=== PATIENT | male | born 2005 | race Caucasian/White ===

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

== ENCOUNTER 2023-07-19 18:30 | Outpatient (CLI) | payer MEDICAID, SELFPAY ==
[2023-07-19 23:12] LABS: Chlamydia DNA Amplified* NOT DETECTED (No Detected); GC DNA Amplified* NOT DETECTED (No Detected)
== END 2023-07-19 18:31 | disposition home or self-care (01) ==
LOC: LKVREF 18:31
PROVIDERS: PCP Physician Assistant Medical; Visit Provider Physician Assistant
DX: Z11.3 Encounter for screening for infections with a predominantly sexual mode of transmission (principal)
CPT/HCPCS: 87491; 87591

== ENCOUNTER 2023-09-24 16:58 | Emergency (ER) | payer OTHER, SELFPAY ==
[2023-09-24] VITALS (21 sets, daily range): BP systolic 117–149; BP diastolic 62–132; PULSE 94–125; RESP 16–40; TEMP 36.8–39.4; O2SAT 94–100; BMI 23.0
--- NOTE | 2023-09-24 17:26 | ED.GENADULT ---
HPI - General Adult General Date Seen: 09/24/23 Chief complaint: Shortness of Breath/Dyspnea Stated complaint: Shortness of breath, wheezing, body aches Time Seen by Provider: 09/24/23 17:26 History of Present Illness HPI narrative: 17-year-old male with past medical history of three previous episodes of mono, GERD, tonsillectomy and adenoidectomy, presenting to the ER today for fever, shortness of breath, tachypnea, and tingling affecting his body and torso. He was seen in the urgent care earlier today. In review of the records he had a temp of 99.6?, pulse ox 100%, respiratory rate 24, pulse of 99. Weight was erroneously charted as 730 kg. He presented for body aches, chills, headache, sore throat, nausea and vomiting, also dry cough and shortness of breath. Rapid strep test, COVID, influenza, RSV tests were negative. Patient says that he woke up on Saturday morning feeling ill. He was shaky and probably running a fever. After that he developed other symptoms including generalized myalgias and whole body achiness. He has also had headache. He has had a very mild but nonproductive cough. He has been nauseous and threw up 1 time (nonbloody, nonbilious) yesterday. He had 1 normal bowel movement and no diarrhea. Urination has been normal, but yellow colored. He has been very thirsty and trying to drink lots of water and Gatorade. He attributes his thirst to his fever. No definite known sick exposures but his girlfriend, who works with him, noted that there were a couple of other coworkers went home with high fevers today. No other history of immunosuppression, diabetes, seizures.. Related Data Home Medications Medication Instructions Recorded Confirmed No Known Home Medications 09/24/23 09/24/23 Allergies Allergy/AdvReac Type Severity Reaction Status Date / Time No Known Allergies Allergy Unknown Verified 09/24/23 14:54 [facility] Surgical History History of tonsillectomy and adenoidectomy (10/22/12) ?Z90.89 - Acquired absence of other organs (ICD-10) Family History Father Hypothyroidism Uncle Hypothyroidism Social History Smoking Status: Never smoker How often do you have a drink containing alcohol: never AUDIT-C Alcohol total score: 0 Non-prescribed substance use: denies use Little interest or pleasure in doing things: not at all Feeling down, depressed, or hopeless: not at all Exam Narrative: Exam Narrative: Constitutional: Tachypneic but oxygen 100%. Breathing fast but respirations are unlabored. No stridor. Feels warm to the touch. Appears well-developed and well-nourished. Alert. Conversant. Non toxic. HENT: Head: Atraumatic. No depressed skull fracture, Raccoon Eyes, Harrison's sign, or hemotympanum. Face normal. TMs normal Nose: Nose normal. Mouth/Throat: Oral mucosa is clear and moist. no trismus. Pharynx erythematous on both. Tonsillar pillars. Tonsils are surgically absent. Uvula midline. Phonation normal. No trismus. No signs of intraoral infection. No facial swelling. Eyes: Conjunctivae normal. EOM normal. Pupils equal, round, and reactive to light. No scleral icterus. Neck: Normal range of motion. Neck supple. No tracheal deviation present. No JVD Cardiovascular: Tachycardic, regular rhythm. No gallop. No friction rub. No murmur heard. Symmetric radial artery pulses Pulmonary/Chest: Effort normal. No stridor. No respiratory distress. No wheezes. No rales. No rhonchi . No tenderness. Abdominal: Soft. Bowel sounds normal. No distension. No mass. No HSM No tenderness. No rebound. No guarding. No CVA tenderness Musculoskeletal: RUE: Normal range of motion. No tenderness. No deformity LUE: Normal range of motion. No tenderness. No deformity RLE: Normal range of motion. No edema. No tenderness. No deformity LLE: Normal range of motion. No edema. No tenderness. No deformity Lymph: Bilateral posterior cervical adenopathy. Neurological: Alert and oriented to person, place, and time. Normal strength. CN II-VII intact. No sensory deficit. GCS eye subscore is 4. GCS verbal subscore is 5. GCS motor subscore is 6. Normal coordination Skin: There is an erythematous nonraised, non sandpapery confluent macular rash affecting his chest. This is a large confluent area of redness where the skin is just slightly red. It is not really consistent with urticaria, scarlet fever. There is no of petechiae or purpura. No vesicles, pustules, or abscesses. Back, abdomen, extremities, neck, and face are normal.. No pallor. Normal capillary refill. Psychiatric: Normal mood. Normal affect. Polite. He has a girlfriend. They work together at [employer]. 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 Const: Vital Signs, click to edit/add: Vital Signs - 24 hr 09/24/23 17:04 09/24/23 17:40 09/24/23 17:51 Temperature 103 F H 103.0 F H Pulse Rate 106 H Pulse Rate [Pulse Oximeter] 119 H Respiratory Rate 40 H Blood Pressure Blood Pressure [Ri ght Upper Arm] 118/68 Pulse Oximetry 100 99 Oxygen Delivery Me thod Room Air 09/24/23 18:00 09/24/23 18:22 09/24/23 18:30 Temperature Pulse Rate 106 H 106 H 111 H Pulse Rate [Pulse Oximeter] Respiratory Rate Blood Pressure Blood Pressure [Ri ght Upper Arm] Pulse Oximetry 98 97 95 Oxygen Delivery Me thod 09/24/23 18:32 09/24/23 18:45 09/24/23 19:00 Temperature Pulse Rate 111 H 114 H 121 H Pulse Rate [Pulse Oximeter] Respiratory Rate Blood Pressure 149/132 H Blood Pressure [Ri ght Upper Arm] Pulse Oximetry 96 99 100 Oxygen Delivery Me thod 09/24/23 19:02 09/24/23 19:04 09/24/23 19:15 Temperature 102.0 F H Pulse Rate 125 H 101 H Pulse Rate [Pulse Oximeter] Respiratory Rate 36 H Blood Pressure 128/97 H Blood Pressure [Ri ght Upper Arm] Pulse Oximetry 100 94 Oxygen Delivery Me thod 09/24/23 19:30 09/24/23 19:39 09/24/23 19:45 Temperature Pulse Rate 108 H 112 H 109 H Pulse Rate [Pulse Oximeter] Respiratory Rate Blood Pressure 117/70 Blood Pressure [Ri ght Upper Arm] Pulse Oximetry 96 98 98 Oxygen Delivery Me thod 09/24/23 19:45 09/24/23 20:00 09/24/23 20:03 Temperature Pulse Rate 104 H 105 H Pulse Rate [Pulse Oximeter] Respiratory Rate Blood Pressure 119/62 Blood Pressure [Ri ght Upper Arm] Pulse Oximetry 99 98 97 Oxygen Delivery Me thod 09/24/23 20:15 09/24/23 20:32 09/24/23 21:02 Temperature 98.3 F Pulse Rate 103 H 102 H 94 Pulse Rate [Pulse Oximeter] Respiratory Rate 20 16 Blood Pressure 118/66 124/68 Blood Pressure [Ri ght Upper Arm] Pulse Oximetry 97 97 97 Oxygen Delivery Me thod 09/24/23 21:08 Temperature 98.3 F Pulse Rate Pulse Rate [Pulse Oximeter] 95 Respiratory Rate 16 Blood Pressure Blood Pressure [Ri ght Upper Arm] 124/68 Pulse Oximetry 97 Oxygen Delivery Me thod Room Air Course Vital Signs Vital signs: Initial Vital Signs Temperature 103 F H 09/24/23 17:04 Temperature Source Oral 09/24/23 17:04 Pulse Rate 119 H 09/24/23 17:04 Respiratory Rate 40 H 09/24/23 17:04 Blood Pressure 118/68 09/24/23 17:04 Blood Pressure Mean 84 09/24/23 17:04 Blood Pressure Position Sitting 09/24/23 17:04 Pulse Oximetry 100 09/24/23 17:04 Oxygen Delivery Method Room Air 09/24/23 17:04 Vital Signs Temperature 103 F H 09/24/23 17:04 Pulse Rate 119 H 09/24/23 17:04 Respiratory Rate 40 H 09/24/23 17:04 Blood Pressure 118/68 09/24/23 17:04 Pulse Oximetry 100 09/24/23 17:04 Oxygen Delivery Method Room Air 09/24/23 17:04 Temperature 98.3 F 09/24/23 21:08 Pulse Rate 95 09/24/23 21:08 Respiratory Rate 16 09/24/23 21:08 Blood Pressure 124/68 09/24/23 21:08 Pulse Oximetry 97 09/24/23 21:08 Oxygen Delivery Method Room Air 09/24/23 21:08 Medications Administered Medications: Discontinued Medications Generic Name Dose Route Start Last Admin Trade Name Freq PRN Reason Stop Dose Admin Sodium Chloride 1,000 mls @ 1,000 mls/hr 09/24/23 17:30 09/24/23 18:42 0.9 % Sodium Chloride 1000 Ml IV 09/24/23 18:29 Infused .Q1H YOANNA Infusion Sodium Chloride 1,000 mls @ 1,000 mls/hr 09/24/23 19:00 09/24/23 20:24 0.9 % Sodium Chloride 1000 Ml IV 09/24/23 19:59 Infused .Q1H YOANNA Infusion Ibuprofen 600 mg 09/24/23 17:45 09/24/23 17:40 Ibuprofen 200 Mg Tablet PO 09/24/23 17:46 600 mg ONCE ONE Administration Lorazepam 1 mg 09/24/23 18:55 09/24/23 19:12 Lorazepam 2 Mg/Ml Inj IVP 09/24/23 18:56 1 mg ONCE ONE Administration Medical Decision Making MDM Narrative Medical decision making narrative: Child presents for evaluation of fever associated with diffuse body aches, myalgias, headache, also significant tachycardia and marked tachypnea with a respiratory rate in the 40s. Despite his rapid respiratory rate, oxygen was actually 100%. Differential for the fever is broad. No classic rash to suggest a classic viral syndrome. No evidence for OM on exam. He does have mild pharyngitis but strep and mono test are negative.. Differential for fever included cellulitis, septic arthritis, osteomyelitis but these are not seen on exam. Lungs are clear and oxygen is normal. He has minimal cough. Because of his tachypnea we did obtain chest x-ray and is clear, by my read. Unfortunately [facility] is down in the are not able to read our films until tomorrow. Formal radiology report pending. Abdominal exam is benign, appendicitis/colitis/ intra-abdominal source for fever is unlikely. UA is normal,, COVID, influenza, RSV PCR negative. [place] and strep negative. Given present T lucia with tachycardia, tachypnea, fever, we did send blood cultures. However the rest of his lab workup looks remarkably good in reassuring. White count normal. Lactic normal. Other labs reassuring. Initially was unclear why he was so tachypneic. Differential would include respiratory problem, anxiety, compensation for metabolic acidosis. We did obtain blood glass was actually shows a respiratory alkalosis. No evidence for new onset DKA. No evidence for a lactic acidosis. He denies any aspirin ingestion. We treated with Ativan and he had marked improvement with that. This would lead me to believe it was probably anxiety/panic triggering the tachypnea. He did have very prominent body aches and headache. No stiff neck. I had a long discussion with the patient and with his father. We discussed our broad differential for his fever including viral syndromes, pharyngitis, mono, bacteremia, as well as more concerning infection such as meningitis. Overall my clinical impression is that this is not meningitis since he is generally well-appearing and does not have any stiff neck. Bacterial meningitis very unlikely, but cannot be definitively ruled out without a LP. I also discussed that there is potential for rapid deterioration with bacterial meningitis, if present. Discussed risk of LP including back pain, post spinal headache, bleeding, [employer] infection. My recommendation was to hold off on LP for now given his clinical improvement after fluids and Ativan and antipyretics. However the patient is father were very concerned and they really wanted to proceed with the LP. Head CT was obtained that is negative for any mass lesion or intracranial abscess. LP was obtained. Opening pressure was normal. Fluid was clear. Cell counts from the CSF are reassuring. No evidence for meningitis at this time. At this point the patient is non-toxic, well appearing. This fever is likely due to viral illness. Plan of care includes supportive care with antipyretics, fluids, and watchful waiting at home. Instructions to return for recheck in 2-3 days if not improved, or immediately if worsening fever, decreasing oral intake, confusion, trouble breathing, lethargy, irritability, seizure, or any other concerns. Prescription for Ativan provided to use if needed for recurrent panic attacks. He understands benzodiazepine precautions. Lab Data Labs: Lab Results 09/24/23 09/24/23 09/24/23 Range/Units 17:20 17:27 17:35 WBC 9.78 (4.50-11.00) K/uL RBC 5.39 (4.30-5.90) m/uL Hgb 16.9 (13.5-17.5) gm/dL Hct 46.9 (37.0-53.0) % MCV 87 (80-100) fL MCH 31 (26-34) pg MCHC 36 (32-36) gm/dL RDW Coeff of Milka 11.7 (11.5-15.5) % Plt Count 156 (140-440) K/uL Neut % (Auto) 67.3 (42.0-72.0) % Lymph % (Auto) 20.6 (20-44) % [place] % (Auto) 11.7 H (0.0-11.0) % Eos % (Auto) 0.1 (0.0-7.0) % Baso % (Auto) 0.2 (0.0-3.0) % Neut # (Auto) 6.59 (1.7-7.0) K/uL Lymph # (Auto) 2.01 (0.90-2.90) K/uL [place] # (Auto) 1.10 H (0.00-0.90) K/UL Eos # (Auto) 0.01 (0.00-0.50) K/uL Baso # (Auto) 0.02 (0.00-0.30) K/uL Abs Immat Gran (auto) 0.01 (0.00-0.30) K/uL Imm/Tot Granulo (auto) 0.1 % VBG pH 7.501 H (7.32-7.43) VBG pCO2 36 L (40-50) mmHG VBG pO2 31.9 (25-47) mmHG VBG HCO3 28 (21-28) mmol/L Sodium 134 L (135-149) mmol/L Potassium 3.6 (3.6-5.1) mmol/L Chloride 98 (96-114) mmol/L Carbon Dioxide 25 (20-32) mmol/L Anion Gap 11 (7-15) mEq/L BUN 14 (5-24) mg/dL Creatinine 0.7 (0.6-1.2) mg/dL Estimated Creat Clear 174.24 Estimated GFR 136 ml/min Glucose 108 (60-115) mg/dL Lactate 1.8 (0.5-1.9) mmol/L Calcium 8.9 (8.7-10.8) mg/dL Total Bilirubin 0.8 (0.1-1.5) mg/dL Direct Bilirubin 0.2 (0.0-0.5) mg/dL AST 31 (12-35) U/L ALT 18 (4-50) U/L Alkaline Phosphatase 56 L (65-260) U/L Total Protein 7.5 (6.0-8.3) g/dL Albumin 4.7 (3.3-5.0) g/dL Urine Color (Yellow) Urine Appearance (Clear) Urine pH (5.0-8.5) Ur Specific [place] (1.000-1.030) Urine Protein (Negative) Urine Glucose (UA) (Negative) Urine Ketones (Negative) Urine Blood (Negative) Urine Nitrite (Negative) Urine Bilirubin (Negative) Urine Urobilinogen (0.2-1.0) Ur Leukocyte Esterase (Negative) Urine RBC (0-2) Urine WBC (0-5) Ur Squamous Epith Cells (None-Few) Urine Bacteria (None) CSF Volume (0-6) mL CSF Appearance (Clear) CSF Color (Colorless) CSF WBC Cells/uL CSF RBC Cells/uL CSF Mononuclear Cells % CSF Polynuclear WBCs % CSF Glucose (40-70) Mg/dL CSF Total Protein (15-45) Mg/dL SARS-CoV-2 (PCR) Negative SARS-CoV-2 (Negative) Monoscreen Negative (Negative) Influenza Type A (PCR) Negative PCR FLU A (Negative) Influenza Type B (PCR) Negative PCR FLU B (Negative) RSV (PCR) Negative PCR RSV (Negative) Group A Strep DNA NOT DETECTED (Not Detectd) Lab Acknowledgement Test Added 09/24/23 09/24/23 Range/Units 20:20 23:00 WBC (4.50-11.00) K/uL RBC (4.30-5.90) m/uL Hgb (13.5-17.5) gm/dL Hct (37.0-53.0) % MCV (80-100) fL MCH (26-34) pg MCHC (32-36) gm/dL RDW Coeff of Milka (11.5-15.5) % Plt Count (140-440) K/uL Neut % (Auto) (42.0-72.0) % Lymph % (Auto) (20-44) % [place] % (Auto) (0.0-11.0) % Eos % (Auto) (0.0-7.0) % Baso % (Auto) (0.0-3.0) % Neut # (Auto) (1.7-7.0) K/uL Lymph # (Auto) (0.90-2.90) K/uL [place] # (Auto) (0.00-0.90) K/UL Eos # (Auto) (0.00-0.50) K/uL Baso # (Auto) (0.00-0.30) K/uL Abs Immat Gran (auto) (0.00-0.30) K/uL Imm/Tot Granulo (auto) % VBG pH (7.32-7.43) VBG pCO2 (40-50) mmHG VBG pO2 (25-47) mmHG VBG HCO3 (21-28) mmol/L Sodium (135-149) mmol/L Potassium (3.6-5.1) mmol/L Chloride (96-114) mmol/L Carbon Dioxide (20-32) mmol/L Anion Gap (7-15) mEq/L BUN (5-24) mg/dL Creatinine (0.6-1.2) mg/dL Estimated Creat Clear Estimated GFR ml/min Glucose (60-115) mg/dL Lactate (0.5-1.9) mmol/L Calcium (8.7-10.8) mg/dL Total Bilirubin (0.1-1.5) mg/dL Direct Bilirubin (0.0-0.5) mg/dL AST (12-35) U/L ALT (4-50) U/L Alkaline Phosphatase (65-260) U/L Total Protein (6.0-8.3) g/dL Albumin (3.3-5.0) g/dL Urine Color Yellow (Yellow) Urine Appearance Slightly Cloudy A (Clear) Urine pH 7.0 (5.0-8.5) Ur Specific [place] 1.025 (1.000-1.030) Urine Protein 2+ A (Negative) Urine Glucose (UA) Negative (Negative) Urine Ketones 2+ A (Negative) Urine Blood Negative (Negative) Urine Nitrite Negative (Negative) Urine Bilirubin Negative (Negative) Urine Urobilinogen 0.2 (0.2-1.0) Ur Leukocyte Esterase Negative (Negative) Urine RBC 0-2 (0-2) Urine WBC 0-2 (0-5) Ur Squamous Epith Cells Few (None-Few) Urine Bacteria None (None) CSF Volume 5.0 (0-6) mL CSF Appearance Clear (Clear) CSF Color Colorless (Colorless) CSF WBC 2 Cells/uL CSF RBC 0 Cells/uL CSF Mononuclear Cells 0 % CSF Polynuclear WBCs 0 % CSF Glucose 70 (40-70) Mg/dL CSF Total Protein 36 (15-45) Mg/dL SARS-CoV-2 (PCR) (Negative) Monoscreen (Negative) Influenza Type A (PCR) (Negative) Influenza Type B (PCR) (Negative) RSV (PCR) (Negative) Group A Strep DNA (Not Detectd) Lab Acknowledgement Imaging Data Chest x-ray: Attestation: I have reviewed the pertinent imaging results. My impression: No evidence for acute pneumonia, focal consolidation, CHF, pneumothorax, pleural effusion, or visible rib fracture. Normal cardiac silhouette. Normal mediastinum. CT scan - head: Attestation: I have reviewed the pertinent imaging results. Radiologist's impression: IMPRESSION: No acute intracranial findings. ECG Data Attestation: I personally reviewed and interpreted this ECG as follows: Interpretation: Sinus tachycardia. Rate 101 MS 114. No delta waves. QRS axis normal axis. No pathologic Q-waves. ST segment/T wave: No ST segment elevation or depression. No signs of pericarditis. QTc: 404 Discharge Plan Discharge Clinical Impression: Fever, Myalgia, Headache, Panic attack Patient Disposition: Home, Self-Care Condition: Stable Instructions: Fever in Adults (ED), Panic Attack (ED) Additional Instructions: As we discussed, please come back to the ER if you have any worsening or changing or new concerning symptoms, especially if you have worsening headache, worsening cough or trouble breathing, uncontrolled vomiting, diarrhea, dehydration, confusion, or any concerns. Use Tylenol or ibuprofen if needed help treat fever and body aches. Drink plenty of fluids to stay hydrated. Eat solid foods when you feel hungry. Use Ativan if needed for anxiety or panic attack. Use caution with Ativan because it does cause drowsiness so he should not drive or operate machinery for 6 hours after you take Ativan. Be careful with Ativan because prolonged use can lead to addiction. Follow-up with your regular doctor for recheck within the next 1-2 weeks for your anxiety. Come back to the ER right away if you have worsening trouble with your fever. Prescriptions: No Action No Known Home Medications Follow Up/Referrals: Kait Walters PA-C [Primary Care Provider] - Stand Alone Forms: [facility] Info Instructions Procedures Lumbar Puncture Pre procedure diagnosis: Fever, headache Written consent by: patient Verification/time out: correct patient, correct site and correct procedure Reason for procedure: diagnostic Patient Position: left lateral decubitus Skin preparation: betadine Local Anesthetic: lidocaine 1% Amount of anesthesia used (mL): 5 Spinal Needle Gauge: 22G Interspace Used: L4-L5 Number of attempts: 1 Opening Pressure (cmH20): 16 Fluid Initially Obtained: clear Estimated blood loss (if any): none Complications: none Conclusion: patient tolerated procedure
--- NOTE | 2023-09-24 17:27 | XR_ITS ---
Final Report Patient: JULIANA DILLARD Facility:?[facility] Patient ID:?[id number] Site Patient ID:?[id number]. Site :?[id number] Study:?XRay Chest 2 VIEW-09/24/2023 6:18:13 PM Ordering Physician:IVVEK Final Report: INDICATION: Dyspnea. TECHNIQUE: Chest radiographs, 2 views. COMPARISON: None. FINDINGS: Cardiovascular/Mediastinum: Normal heart size. Unremarkable. Lungs: No focal consolidation. Airways: Trachea remains midline. Pleura: No pleural effusions or pneumothorax. Bones: No acute osseous abnormalities. Upper abdomen: Unremarkable. IMPRESSION: No acute cardiopulmonary process. No focal consolidation seen to suggest pneumonia. Dictated by Dinesh Arora MD @ 09/24/2023 11:46:35 PM (Electronic Signature)
[2023-09-24 17:28] LABS: Lactate* 1.8 mmol/L (0.5-1.9)
[2023-09-24 17:34] LABS: HCO3 VBG 28 mmol/L (21-28); PCO2 VBG 36 mmHG (40-50); PO2 VBG 31.9 mmHG (25-47); pH VBG 7.501 (7.32-7.43)
[2023-09-24 17:35] LABS: Basophils Absolute Auto 0.02 K/uL (0.00-0.30); Basophils Percent Auto 0.2 % (0.0-3.0); Eosinophils Absolute Auto 0.01 K/uL (0.00-0.50); Eosinophils Percent Auto 0.1 % (0.0-7.0); Hematocrit 46.9 % (37.0-53.0); Hemoglobin* 16.9 gm/dL (13.5-17.5); Immature Granulocytes Abs Auto 0.01 K/uL (0.00-0.30); Immature Granulocytes Pct Auto 0.1 %; Lymphocytes Absolute Auto 2.01 K/uL (0.90-2.90); Lymphocytes Percent Auto 20.6 % (20-44); Mean Corpuscular HGB Conc 36 gm/dL (32-36); Mean Corpuscular Hemoglobin 31 pg (26-34); Mean Corpuscular Volume 87 fL (80-100); Monocytes Percent Auto 11.7 % (0.0-11.0); Neutrophils Absolute Auto 6.59 K/uL (1.7-7.0); Neutrophils Percent Auto 67.3 % (42.0-72.0); Platelet Count* 156 K/uL (140-440); RDW Coefficient of Variation % 11.7 % (11.5-15.5); Red Blood Count 5.39 m/uL (4.30-5.90); White Blood Count* 9.78 K/uL (4.50-11.00)
[2023-09-24] MEDS: IBUPROFEN 200 MG TABLET 600 MG PO (17:40)
[2023-09-24] MEDS: 0.9 % SODIUM CHLORIDE 1000 ml 1,000 ML IV ×2 (17:40→19:12)
[2023-09-24 17:46] LABS: Slide Review Reflex No
[2023-09-24 17:48] LABS: Chloride* 98 mmol/L (96-114); Potassium* 3.6 mmol/L (3.6-5.1); Sodium* 134 mmol/L (135-149)
[2023-09-24 17:51] LABS: Anion Gap 11 mEq/L (7-15); Carbon Dioxide* 25 mmol/L (20-32); Creatinine* 0.7 mg/dL (0.6-1.2); Est. Creatinine Clearance* 174.24; Estimated Glomerular Filt Rate 136 ml/min
[2023-09-24 17:52] LABS: Blood Urea Nitrogen* 14 mg/dL (5-24); Calcium* 8.9 mg/dL (8.7-10.8); Glucose* 108 mg/dL (60-115)
[2023-09-24 18:12] LABS: Mono Screen* Negative (Negative)
[2023-09-24 18:14] LABS: Albumin* 4.7 g/dL (3.3-5.0)
[2023-09-24 18:17] LABS: Bilirubin Direct* 0.2 mg/dL (0.0-0.5); Bilirubin Total* 0.8 mg/dL (0.1-1.5); Total Protein* 7.5 g/dL (6.0-8.3)
[2023-09-24 18:18] LABS: Alanine Aminotransferase* 18 U/L (4-50); Alkaline Phosphatase* 56 U/L (65-260); Aspartate Amino Transferase* 31 U/L (12-35)
[2023-09-24 18:19] LABS: Strep A DNA Probe* NOT DETECTED (Not Detectd)
[2023-09-24 18:32] LABS: PCR FLU A Negative PCR FLU A (Negative); PCR FLU B Negative PCR FLU B (Negative); PCR RSV Negative PCR RSV (Negative); SARS PCR* Negative SARS-CoV-2 (Negative)
[2023-09-24] MEDS: LORazepam 2 MG/ML inj 1 MG IVP (19:12)
[2023-09-24 20:25] LABS: Appearance Urine Slightly Cloudy (Clear); Bilirubin Urine Negative (Negative); Blood Urine Negative (Negative); Color Urine Yellow (Yellow); Glucose Urine Negative (Negative); Ketones Urine 2+ (Negative); Leukocyte Esterase Urine Negative (Negative); Nitrite Urine Negative (Negative); Protein Urine 2+ (Negative); Specific Gravity Urine 1.025 (1.000-1.030); Urobilinogen Urine 0.2 (0.2-1.0)
[2023-09-24 20:47] LABS: RBC Urine 0-2 (0-2); Squamous Epithelial Cell Urine Few (None-Few); WBC Urine 0-2 (0-5)
--- NOTE | 2023-09-24 21:22 | CT_ITS ---
Final Report Patient: JULIANA DILLARD Facility:?[facility] Patient ID:?[id number] Site Patient ID:?[id number]. Site :?[id number] Study:?CT Head W/O-09/24/2023 9:53:35 PM Ordering Physician:VIVEK Final Report: INDICATION: Trauma. TECHNIQUE: Multiplanar CT examination of the head was performed without the use of intravenous contrast. COMPARISON: None. FINDINGS: No loss of ndiaye-white differentiation to suggest recent territorial infarct. No intracranial hemorrhage, abnormal extra-axial fluid collection, hydrocephalus or midline shift. The ventricles and cerebral sulci are normal in caliber. The basal cisterns are patent. The paranasal sinuses and mastoid air cells remain clear. The orbits and calvarium are unremarkable. The cerebellar tonsils are normal position. IMPRESSION: No acute intracranial findings. Please note that all CT scans at this facility use dose modulation, iterative reconstruction, and/or weight-based dosing when appropriate to reduce radiation dose to as low as reasonably achievable. Dictated by Dinesh Arora MD @ 09/24/2023 10:11:15 PM (Electronic Signature)
[2023-09-24 23:13] LABS: Appearance CSF Clear (Clear); Color CSF Colorless (Colorless)
[2023-09-24 23:41] LABS: Glucose, CSF* 70 Mg/dL (40-70); RBC, CSF 0 Cells/uL; Total Protein, CSF 36 Mg/dL (15-45); WBC, CSF 2 Cells/uL
[2023-09-25 00:09] LABS: CSF Mononuclear Cells 0 %; CSF Polynuclear Cells 0 %
== END 2023-09-25 00:30 | disposition home or self-care (01) ==
PROVIDERS: Emergency Provider Emergency Medicine; PCP Physician Assistant Medical
DX: R50.9 Fever, unspecified (principal); R51.9 Headache, unspecified; M79.10 Myalgia, unspecified site; F41.0 Panic disorder [episodic paroxysmal anxiety]
CPT/HCPCS: 62270; 36415; 70450; 71046; 80048; 80076; 81001; 82803; 82945; 83605; 84157; 85025; 86308; 87040; 87631; 87651; 89051; 93005; 94761; 96360; 96361; 99284; 99285; A9270; J2060; J7030

== ENCOUNTER 2023-09-26 15:21 | Outpatient (CLI) | payer OTHER, SELFPAY ==
[2023-09-26 23:55] LABS: Chlamydia DNA Amplified* Not Detected (No Detected); GC DNA Amplified* Not Detected (No Detected)
== END 2023-09-26 15:22 | disposition home or self-care (01) ==
PROVIDERS: PCP Physician Assistant Medical; Visit Provider Physician Assistant Medical
DX: R17 Unspecified jaundice (principal); R79.89 Other specified abnormal findings of blood chemistry
CPT/HCPCS: 80053; 82728; 83540; 83550; 83690; 84443; 86592; 86703; 86706; 86713; 86803; 87340; 87491; 87591